=== PATIENT | male | born 1995 | race Caucasian/White ===

== ENCOUNTER 2024-02-21 16:07 | Outpatient (OUT) | payer OTHER, SELFPAY ==
--- NOTE | 2024-02-21 | XR_ITS ---
The [address] [address] Patient Name: ORION CASEY MRN: [id number] date: 1995 Sex: M Assigned Patient Location: RAD Current Patient Location: RAD Accession/Order Number: [id number] Exam Date: 02/21/2024 16:25 Report Date: 02/21/2024 17:23 At the request of: KALI CORONADO Procedure: XR chest 2V EXAM: XR chest 2V HISTORY: COUGH COMPARISON: None. TECHNIQUE: Upright PA and lateral chest x-ray FINDINGS: Very subtle opacity is seen at the left lung base which may indicate very early infiltrate or possibly atelectasis. The left upper and lower right lung are clear. There is no evidence of an effusion or pneumothorax. The heart is not enlarged and the vasculature is not distended. The osseous structures are grossly intact. XR/XR chest 2V IMPRESSION: Subtle changes at the left lung base indicating an early infiltrate or possibly atelectasis. There is no other evidence of a focal infiltrate or cardiac decompensation. Direct comparison with a previous study may be helpful in determining the chronicity of these findings. Electronically authenticated by: TRANG REYES Date: 02/21/2024 17:23
== END 2024-02-21 16:08 | disposition home or self-care (01) ==
PROVIDERS: PCP Family Medicine; Visit Provider Family Medicine
DX: R05.9 Cough, unspecified (principal)
CPT/HCPCS: 71046